=== PATIENT | male | born 1960 | race Caucasian/White ===

== ENCOUNTER → 2018-09-18 | Outpatient (CLI) | payer MEDICARE, OTHER ==
--- NOTE | 2018-09-20 22:24 | CT ---
EXAMINATION TYPE: CT lumbar spine wo con DATE OF EXAM: 09/18/2018 COMPARISON: None HISTORY: 58-year-old male low back pain X many years TECHNIQUE: Contiguous axial scanning of the lumbar spine without IV contrast. Coronal and sagittal re constructions performed. CT DLP: 897.5 mGycm Automated exposure control for dose reduction was used. FINDINGS: 1.7 cm low-density nodule of the left adrenal gland compatible with a benign adrenal adenoma. Moderate at this cardiac calcifications infrarenal abdominal aorta and iliac arteries. Otherwise, no prevertebral or paravertebral soft tissue abnormality seen. There is bony ankylosis across the posterior elements and across some of the interspinous ligaments. Additional symmetrical syndesmophyte formation mid to lower lumbar spine. There is bony fusion across the SI joints as well. 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 Mild disc bulge and ligamentum flavum thickening at L4-L5. Hypertrophic facet arthropathy throughout. At L4-L5, changes result in mild to moderate overall spinal canal stenosis. On the right, changes as noted in mild to moderate neural foraminal stenosis at L4-L5. On the left, changes result in mild neuroforaminal stenosis at both L4-L5 and L5-S1. Vertebral body heights are preserved. Alignment is maintained. IMPRESSION: 1. NO VERTEBRAL COMPRESSION COLLAPSE OR MALALIGNMENT. 2. 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 CORRELATE FOR INFLAMMATORY SPONDYLOARTHROPATHY/ANKYLOSING SPONDYLIT IS IN THIS PATIENT. 3. MILD TO MODERATE SPINAL CANAL STENOSIS AT L4-L5 AND [facility] RIGHT NEUROFORAMINAL STENOSIS AT THIS LEVEL. 4. INCIDENTAL 1.7 CM LIPID RICH LEFT ADRENAL ADENOMA.
== END ==
LOC: RADCTMAIN 17:00
PROVIDERS: ATTEND Psychiatry & Neurology Neurology
DX: M48.061 Spinal stenosis, lumbar region without neurogenic claudication (principal); M89.8X8 Other specified disorders of bone, other site; M43.28 Fusion of spine, sacral and sacrococcygeal region
CPT/HCPCS: 72131